=== PATIENT | male | born 2000 | race Caucasian/White ===

== ENCOUNTER 2023-07-15 21:47 | Emergency (ER) | payer SELFPAY ==
--- NOTE | ~2023-07-15 | CT_ITS ---
CT of the Abdomen and Pelvis: Indication: Abdominal pain Technique: 2.5 mm axial scans were obtained through the abdomen and pelvis following intravenous adm inistration of 100 cc of Omnipaque 350. Dose reduction technique was used on this scan by utilizing a utomated exposure control and iterative reconstruction technique. The dose-length product (DLP) was 4 55.30 mGy-cm. Findings: Scans through the lung bases are unremarkable. The liver, spleen, pancreas, gallbladder, adrenals and kidneys are within normal limits. No evidence of aortic aneurysm. No lymphadenopathy. No bowel obstruction or bowel wall thickening. There is no evidence to suggest acute appendicitis. Images through the pelvis were performed. Urinary bladder unremarkable. No pelvic mass seen. No ascit es. Impression: No significant abnormalities seen. Reviewed, dictated and finalized at location . Impression: No significant abnormalities seen.
[2023-07-15 21:55] VITALS: BP 166/103; PULSE 89; RESP 16; TEMP 37.3; O2SAT 100
[2023-07-15 22:20] LABS: Basophils Absolute Auto 0.1 K/mm3 (0.0-0.1); Basophils Percent Auto 0.3 % (0.2-1.2); Eosinophils Percent Auto 0.1 % (0-4.4); Hematocrit 45.3 % (42.0-52.0); Hemoglobin 16.7 g/dL (14.0-18.0); Immature Granulocyte Absolute 0.06 K/mm3 (0.00-0.031); Immature Granulocyte Percent A 0.4 % (0-0.5); Lymphocytes Absolute Auto 1.52 K/mm3 (0.9-3.2); Lymphocytes Percent Auto 9.6 % (18.3-44.2); Mean Corpuscular HGB Conc 36.9 g/dl (32-36); Mean Corpuscular Hemoglobin 32.4 pg (26-34); Mean Corpuscular Volume 87.8 fl (80-100); Mean Platelet Volume 9.7 fl (7.4-10.4); Monocytes Absolute Auto 0.9 K/mm3 (0.1-0.6); Monocytes Percent Auto 5.5 % (2.6-8.5); Neutrophils Absolute Auto 13.3 K/mm3 (1.3-6.7); Neutrophils Percent Auto 84.1 % (45.5-73.1); Platelet Count Result 373 k/mm3 (150-375); Red Blood Count 5.16 M/mm3 (4.6-6.20); Red Cell Distribution Width 12.1 % (11.5-14.5); White Blood Count 15.8 K/mm3 (4.5-10.0)
[2023-07-15 22:30] LABS: Alanine Aminotransferase 17 U/L (6-50); Albumin Level 5.5 g/dL (3.5-5.1); Alkaline Phosphatase 108 U/L (38-126); Anion Gap 9 mmol/L (4-12); Aspartate Amino Transferase 27 U/L (17-59); Bilirubin,Total 0.9 mg/dL (0.2-1.3); Blood Urea Nitrogen 8 mg/dL (9-20); Calcium 10.7 mg/dL (8.4-10.2); Carbon Dioxide 26 mmol/L (22-30); Chloride 103 mmol/L (98-107); Estimated CRCL calculation 125 ml/min; Estimated Glomerular Filt Rate > 60; Glucose 127 mg/dL (65-110); Lipase 41 U/L (23-300); Potassium 3.5 mmol/L (3.4-5.0); Sodium 138 mmol/L (137-145)
[2023-07-15] MEDS: ONDANSETRON INJ 4 MG/2 ML VIAL IV PUSH (23:08)
[2023-07-15] MEDS: MORPHINE SULFATE (*CRX) 4 MG/ML INJ IV PUSH (23:08)
[2023-07-15] MEDS: SODIUM CHLORIDE 0.9% IV 1,000 ML 999 ML IV CONT (23:08)
--- NOTE | 2023-07-15 23:11 | ED.NAVMDI ---
HPI - Nausea/Vomiting/Diarrhea General Chief complaint: Nausea/Vomiting/Diarrhea Stated complaint: headache, bodyaches, n/v Time Seen by Provider: 07/15/23 21:55 Source: patient Mode of arrival: ambulatory Limitations: no limitations History of Present Illness HPI Narrative: Patient is a 22-year-old male who presents the ED with report of nausea, vomiting, body aches. Patient reports he began feeling ill 2 days ago. He complains of lower back discomfort, lower abdominal discomfort, body aches, subjective fevers, chills, nausea, vomiting, diarrhea, headache. Has attempted taking Advil, NyQuil for his symptoms, but was unable to keep these down. Denies cough or cold symptoms. Denies rectal bleeding or melena. Denies sick contacts. Denies urinary complaints. Related Data Allergies Allergy/AdvReac Type Severity Reaction Status Date / Time No Known Allergies Allergy Verified 07/15/23 21:59 Review of Systems Review of Systems: CONSTITUTIONAL: See HPI. CARDIOVASCULAR: Denies chest pain. RESPIRATORY: Denies cough or dyspnea. GASTROINTESTINAL: See HPI. GENITOURINARY: Denies dysuria or hematuria. MUSCULOSKELETAL: See HPI. NEUROLOGIC: See HPI. All systems reviewed & are unremarkable except as noted in HPI and below Exam Narrative: GENERAL: Mildly ill appearing, well-nourished, non-toxic, in no acute distress. HEAD: Normocephalic, atraumatic. RESPIRATORY: Airway patent, respirations nonlabored. Clear to auscultation bilaterally, no rales, rhonchi, wheezing. CARDIOVASCULAR: Borderline tachycardic with regular rhythm without murmurs, rubs, or gallops. ABDOMINAL: Soft, diffuse tenderness throughout lower abdomen, no significant focal tenderness, nondistended. Normoactive BS. MUSCULOSKELETAL: Moves all extremities. No gross deformities. SKIN: Warm, dry, normal color. NEURO: A&O X3. Speech clear. PSYCHIATRIC: Appropriate mood and affect. Normal interaction. Course Vital Signs Vital signs: Vital Signs Temperature 99.1 F 07/15/23 21:55 Pulse Rate 89 07/15/23 21:55 Respiratory Rate 16 07/15/23 21:55 Blood Pressure 166/103 H 07/15/23 21:55 Pulse Oximetry 100 07/15/23 21:55 Oxygen Delivery Room Air 07/15/23 21:55 Temperature 99.1 F 07/15/23 21:55 Pulse Rate 89 07/15/23 21:55 Respiratory Rate 16 07/15/23 21:55 Blood Pressure 166/103 H 07/15/23 21:55 Pulse Oximetry 100 07/15/23 21:55 Oxygen Delivery Room Air 07/15/23 21:55 MDM - Nausea/Vomiting/Diarrhea MDM Narrative Medical decision making narrative: Patient presented to ED with viral type symptoms x2 days. Vital signs stable upon arrival. Patient borderline febrile. He did attempt taking NyQuil prior to arrival, but is unsure if he kept this down. CBC with white blood cell count of 15.8. Neutrophil predominance. No bandemia. CMP with stable electrolytes, stable kidney function. Likely dehydration. Normal LFTs and lipase. Urinalysis with evidence of dehydration, no signs of infection. Viral swabs negative. CT scan of abdomen pelvis obtained and showing enteritis. Consistent with clinical picture. Discussed lab and imaging findings with patient. He is feeling better with supportive therapy. Able to tolerate p.o. intake. Will discharge home with Radha and Meghann. Discussed supportive therapy and return precautions. D/C in stable condition. Medical Records Attestation: I reviewed the patient's medical records. Lab Data Attestation: I reviewed the patient's lab results. 07/15/23 22:15 07/15/23 22:15 Labs: Lab Results 07/15/23 07/15/23 07/16/23 Range/Units 22:15 23:30 00:15 WBC 15.8 H (4.5-10.0) K/mm3 RBC 5.16 (4.6-6.20) M/mm3 Hgb 16.7 (14.0-18.0) g/dL Hct 45.3 (42.0-52.0) % MCV 87.8 (80-100) fl MCH 32.4 (26-34) pg MCHC 36.9 H (32-36) g/dl RDW 12.1 (11.5-14.5) % Plt Count 373 (150-375) k/mm3 MPV 9.7 (7.4-10.4) fl Immatu
[2023-07-16 00:10] LABS: Influenza A QL RT-PCR Negative (Negative); Influenza B QL RT-PCR Negative (Negative); RSV RNA, RT-PCR Negative (Negative); SARS-CoV-2 RNA PCR Negative (Negative)
[2023-07-16 00:26] LABS: Appearance Urine Clear (Clear); Bacteria Urine None Seen /hpf; Bilirubin Urine Negative (Negative); Blood Urine Negative (Negative); Color Urine Yellow (Yellow); Glucose Urine UA Negative (Negative); Ketones Urine 1+ mg/dL (Negative); Leukocyte Esterase Ur Negative LEU/UL (Negative); Nitrate Urine Negative (Negative); Non Pathogenic Casts 0-2; Protein Urine 1+ mg/dL (Negative); RBC Urine 0-2 /hpf (0-2); Squamous Epithelial Cell Urine None Seen /hpf (Few); WBC Urine 0-5 /hpf (0-3); pH Urine 8.5 (5.0-9.0)
[2023-07-16 00:27] LABS: Add Urine Microscopic? YES; Specific Grav Ur 1.089 (1.001-1.035)
[2023-07-16] MEDS: KETOROLAC 30 MG/ML VIAL (*BKC) IV PUSH (00:44)
[2023-07-16] MEDS: DICYCLOMINE HCL 10 MG CAPSULE 20 MG PO (00:45)
[2023-07-16] MEDS: SODIUM CHLORIDE 0.9% IV 1,000 ML 999 ML IV CONT (00:45)
[2023-07-16 01:36] VITALS: BP 146/80; PULSE 85; RESP 17; O2SAT 98
== END 2023-07-16 01:37 | disposition home or self-care (01) ==
PROVIDERS: Emergency Medicine; Emergency Provider Physician Assistant
DX: K52.9 Noninfective gastroenteritis and colitis, unspecified (principal); Z20.822 Contact with and (suspected) exposure to COVID-19
CPT/HCPCS: 36415; 74177; 80053; 81001; 83690; 85025; 87637; 96361; 96374; 96375; 99284; A9270; J1885; J2270; J2405; J7030; Q9967